=== PATIENT | female | born 1965 | race Caucasian/White ===

== ENCOUNTER 2024-12-30 11:05 | Outpatient (CLI) | payer MEDICAID, SELFPAY ==
[2024-12-30 16:00] LABS: Hematocrit 44.1 % (37.0-47.0); Hemoglobin 14.3 g/dL (12.2-16.2); Immature Granulocytes % 0.8 %; Mean Corpuscular HGB Conc 32.4 g/dL (31.8-35.4); Mean Corpuscular Hemoglobin 29.5 pg (27.0-31.2); Mean Corpuscular Volume 90.9 fl (81-99); Nucleated Red Blood Cells % 0 %; Platelet Count 221 K/mm3 (142-424); Red Blood Count 4.85 M/mm3 (4.20-5.40); Red Cell Distribution Width-SD 49.7 fL; White Blood Count 15.1 K/mm3 (4.8-10.8)
[2024-12-30 16:44] LABS: Alanine Aminotransferase 30 U/L (12-78); Albumin Level 3.4 g/dl (3.5-5.0); Albumin/Globulin Ratio 1.4 (1.1-1.8); Alkaline Phosphatase 86 U/L (38-126); Anion Gap 9.0 mEq/L (5-15); Aspartate Amino Transferase 25 U/L (14-36); Bilirubin,Total 0.4 mg/dl (0.2-1.3); Blood Urea Nitrogen 17 mg/dl (7-17); Calcium 8.7 mg/dl (8.4-10.2); Carbon Dioxide 30 mmol/L (22.0-30.0); Chloride 101 mmol/L (98-107); Cholesterol 164 mg/dl (140-200); Creatinine,Serum 0.80 mg/dl (0.52-1.04); Estimated Glomerular Filt Rate 74 ml/min (>60); GFR (African American) 89 ML/MIN (>60); Globulin 2.4 g/dL (1.3-3.2); Glucose 99 mg/dl (74-100); HDL Cholesterol 79 mg/dl (40-60); Potassium 4.0 mmoL/L (3.5-5.1); Sodium 136 mmol/L (136-145); Total Protein,Serum 5.8 g/dl (6.3-8.2); Triglycerides 127 mg/dl (30-150)
[2024-12-30 16:59] LABS: 25-OH Vitamin D, Total 35.2 ng/mL (30-100)
[2024-12-30 17:15] LABS: Thyroid Stimulating Hormone 2.37 uIU/mL (0.465-4.68)
[2024-12-30 18:11] LABS: Hepatitis C Ab Qual. W/ RFX NEGATIVE (Negative)
--- OUTSIDE RECORDS SUMMARY | 2025-01-02 10:46 | XMS_ITS | Clinical Summary ---
Author Organization [facility] Medical Address [facility] [place] [address] Phone Care Team Providers Care Assessment Technician Name Role Phone Adair SONIAThea Primary Care Physician Conditions or Problems Problem Name Problem Code Onset Date Status Entry Date Provider Comment Standard Description Annotate Counseling for nutrition Z71.3 (ICD-10-CM ) 12/23 Inactive 12/23 Berlin Mcdowell MD Dietary counseling and surveillance Body mass index (BMI) 45.0-49.9; adult Z68.42 (ICD-10-CM ) 12/23 Active 12/23 Berlin Mcdowell MD Body mass index [BMI] 45.0-49.9, adult Body mass index (BMI) 40.0-44.9; adult Z68.41 (ICD-10-CM ) 11/24 Correction 11/24 Berlin Mcdowell MD Body mass index [BMI] 40.0-44.9, adult Rotator cuff impingement syndrome Rt shoulder 708945325 (SNOMED CT) 12/23 Active 12/23 Berlin Mcdowell MD Rotator cuff impingement syndrome Counseling for nutrition Z71.3 (ICD-10-CM ) 11/24 Inactive 11/24 Celeste Munoz APRN Dietary counseling and surveillance Body mass index (BMI) 40.0-44.9; adult Z68.41 (ICD-10-CM ) 11/24 Removed 11/24 Celeste Munoz APRN Body mass index [BMI] 40.0-44.9, adult Body mass index (BMI) 40.0-44.9; adult Z68.41 (ICD-10-CM ) 10/21 Correction 10/21 Celeste Munoz APRN Body mass index [BMI] 40.0-44.9, adult Body mass index (BMI) 40.0-44.9; adult Z68.41 (ICD-10-CM ) 10/21 Removed 10/21 Daria Valadez APRN Body mass index [BMI] 40.0-44.9, adult Counseling for nutrition Z71.3 (ICD-10-CM ) 10/21 Inactive 10/21 Daria Valadez APRN Dietary counseling and surveillance Body mass index (BMI) 39.0-39.9; adult Z68.39 (ICD-10-CM ) 10/08 Correction 10/08 Daria Valadez APRN Body mass index [BMI] 39.0-39.9, adult Acute cystitis 44674739 (SNOMED CT) 10/21 Inactive 10/21 Daria Valadez APRN Acute cystitis Body mass index (BMI) 39.0-39.9; adult Z68.39 (ICD-10-CM ) 10/08 Removed 10/08 Celeste Munoz APRN Body mass index [BMI] 39.0-39.9, adult COPD with exacerbatio n 555319919 (SNOMED CT) 10/08 Inactive 10/08 Celeste Munoz APRN Acute exacerbation of chronic obstructive pulmonary disease Hx of COPD 560419409 (SNOMED CT) 04/11 Active 04/11 Thea Borrero APRN History of chronic obstructive airway disease Seasonal allergic rhinitis 885709933 (SNOMED CT) 04/11 Active 04/11 Thea Borrero APRN Seasonal allergic rhinitis Medications Medication Instructions Start Date Stop Date Generic Name ND Provider DAVID ULTRA STRENGTH 5 % PTCH Apply to rt shoulder twice a day MENTHOL (TOPICAL ANALGESIC) [id number] Berlin Mcdowell MD OMEPRAZOLE 20 MG CPDR TAKE 1 CAPSULE BY MOUTH ONCE A DAY OMEPRAZOLE [id number] Berlin Mcdowell MD IBUPROFEN 800 MG TABS TAKE 1 TABLET THREE TIMES DAILY NEEDED FOR PAIN IBUPROFEN 05393443747 Berlin Mcdowell MD CEFUROXIME AXETIL 250 MG TABS Take one tablet by mouth every 12 hours for 10 days CEFUROXIME AXETIL 65047109960 Celeste Tammy SCOTT PREDNISONE 10 MG TABS 4 BY MOUTH EVERY DAY FOR 3 DAYS; 3 BY MOUTH EVERY DAY FOR 3 DAYS; 2 PO BY MOUTH FOR 3 DAYS; 1 BY MOUTH FOR 3 DAYS PREDNISONE [id number] Celeste Tammy SCOTT MACROBID 100 MG CAPS ONE CAPSULE BY MOUTH TWICE A DAY NITROFURANTOIN MONOHYD MACRO [id number] Daria Valadez ORACLE DBA PREDNISONE 20 MG TABS TAKE 2 TABLETS BY MOUTH ONCE EVERY MORNING WITH FOOD PREDNISONE 24450729248 Aaron Brizuela DO ADVAIR DISKUS 250-50 MCG/DOSE INHALATION AEROSOL POWDER BREATH ACTIVATED TAKE 1 INHALATION 2 TIMES A DAY FLUTICASONE-SALME TEROL 66572179841 Thea Borrero APRN ADVAIR HFA 115-21 MCG/ACT AERO USE 2 INHALATIONS TWICE A DAY FLUTICASONE-SALME TEROL 46646548833 Thea Borrero APRN VENTOLIN HFA 108 (90 Base) MCG/ACT AERS TAKE 2 INHALATIONS 4 TIMES A DAY NEEDED FOR WHEEZING ALBUTEROL SULFATE 96416689307 Thea Borrero APRN JOSELYN ALLERGY 180 MG TABS TAKE 1 TABLET BY MOUTH EACH DAY FOR ALLERGIES FEXOFENADINE HCL 11678802746 Thea Borrero APRN SINGULAIR 10 MG TABS TAKE 1 TABLET BY MOUTH 1 TIME A DAY MONTELUKAST SODIUM 59496407752 Thea Borrero APRN IPRATROPIUM-A LBUTEROL 0.5-2.5 (3) MG/3ML SOLN use with nebulizer machine IPRATROPIUM-ALBUT RALPH 74504036397 Thea Borrero APRN Medications Administered No information available. Allergies, Adverse Reactions, Alerts Allergy Name Reaction Description Start Date Severity Statu s Provider CIPRO Severe Active Thea B willian ORACLE DBA BACTRIM Severe Active Thea B willian ORACLE DBA AZITHROMYCIN Severe Active Brian Borrero ORACLE DBA Results Date Name Value Unit Range Flag Description Lab Report: HEPATITIS B SURF SHARIF ANTIGEN W/REFL CONFIRM, HEPATITIS B SURF ... HBSAG NON-REACTIVE NON-REACTI N Hepat itis B virus surface Ag [Presence] in Tissue by Immune stain Office Visit: Flank pain, tr ouble urinating, hard to void RM 1 GLUCOSE, URN negative Glucose [Mass/volume] in Urine by Test strip BILIRUBIN UR negative Bilirub in.total [Presence] in Urine by Test strip KETONES URN negative Ketones [Mass/volume] in Urine by Test strip SPEC GR URIN 1.025 Specific gravity of Urine by Test strip BLOOD UR DIP 3+ blood in urine (hemoglobin) by dipstick PH URINE 6.0 pH of Urine by Test strip PROTEIN, URN 1+ protein, urine, semiquantitative (dipstick) UROBILINOGEN 0.2 Urobilin ogen [Presence] in Urine by Test strip NITRITE URN positive Nitrite [Presence] in Urine by Test strip WBC DIPSTK U 3+ Leukocyt e esterase [Presence] in Urine by Test strip Plan of Care Type Date Detail Referral [facility] Physical [facility] Referral excluded fr om report: Pending order X-Ray Shoulder R ight Pending Order exclud ed from report: Pending [place] Inhalation Treat [place] 88696 Pending order X-Ray Chest Pending order Injection(s) Ord ered Pending order Urine Dip Auto 8 1003 Pending order T1 Urine Culture Patient education Patient Educat ion Given Patient education Medications Patient education Medications Patient education Medications Patient education Medications Patient education Medications Procedures Code Procedure Name Date Entry Date [facility]-[id number] Medication Reconciliation X-Ray Shoulder Right X-Ray Shoulder Right CPT-3074F Most recent systolic blood pressure <130 mm Hg CPT-3079F Most recent diastolic blood pressure 80-8 9 [facility]18 [facility]-[id number] Medication Reconciliation CPT-78811 Pulse Ox for O2 Saturation; single 01540 CPT-3074F Most recent systolic blood pressure <130 mm Hg CPT-3078F Most recent diastoli c blood pressure <80 mm Hg PUL[facility] Pulmonology Referral General CPT-19446 Inhalation Treatment 40131 2 X-Ray Chest X-Ray Chest Inj Order Injection(s) Ordered [id number] Depo medrol 40mg/ml Injection 11/24 [facility]-[id number] Medication Reconciliation CPT-3074F Most recent systolic blood pressure <130 mm Hg CPT-3074F Most recent systolic blood pressure <130 mm Hg CPT-16818 Urine Dip Auto 67240 [facility] 395 T1 Urine Culture CPT-3074F Most recent systolic blood pressure <130 mm Hg CPT-3078F Most recent diastoli c blood pressure <80 mm Hg SCT-[id number] Medication Reconciliation SCT-[id number] Medication Reconciliation [facility]-[id number] Giving encouragement to exercise [facility]-[id number] [facility] [id number] Current Medications Documented Vital Signs Date Name Value Unit Description BMI (Body Mass Index) 47.43 kg/m2 Bod y Mass Index (Ratio) Body Temperature 98.0 [degF] temperat ure E&M Body Temperature 36.67 Elizabeth temperat ure in centigrade E&M BP Diastolic 82 mm[Hg] blood pressu re, diastolic BP Systolic 122 mm[Hg] blood pressur e, systolic BSA (Body Surface Area) 2.16 b chun surface area Heart Rate 76 /min pulse rate Height 60 [in_us] height E&M Height 152.4 cm height in cent imeters E&M Weight Measured 110 kg weight in kilograms E&M Weight Measured 242 [lb_av] weight E& M Weight Measured 242 [lb_av] weight E& M Respiratory Rate 18 /min respirat ory rate E&M Immunizations No information available. Advance Directives No information available.
--- OUTSIDE RECORDS SUMMARY | 2025-01-02 10:48 | XMS_ITS | Clinical Summary ---
Author Organization [facility] Address [address] [place] [address] Care Team Providers Care Compressor Mechanic Bus Name Role Phone Unavailable Primary Care Provider Unavailabl e Social History Tobacco Use Types Packs/Day Years Used Date Smoking Tobacco: Never Assessed Comments Unknown Sex and Gender Information Value Date Recorded Sex Assigned at Not on file Legal Sex Female 8:42 AM EDT Gender Identity Not on file Sexual Orientation Not on file Plan of Treatment Health Maintenance Due Date Last Done Comments Pap Screening 1987 Mammogram Screening 2006 Colonoscopy 2011 Shingrix (#1) 01/31/2016 Pneumococcal 50+ (3 of 3 - PCV20 or PCV21) 02/24/2024 02/23/2019, 07/22/2017 Influenza Vaccine (#1) 2024 DTap,Tdap,and Td (2 - Td or Tdap) 01/23/2029 01/23/2019 RSV Vaccine (60+ or ) (1 - 1-dose 75+ series) 2041 Pneumococcal 0-49 Discontinued 02/23/2019, 07/22/2017 HPV Aged Out No longer eligi ble based on patient's age to complete this topic Meningococcal conjugate valent 4 (MCV4) Aged Out No longer eligible based on patient's age to complete this topic RSV Immunization (<20 months) Aged Out No longer eligible based on patient's age to complete this topic
--- OUTSIDE RECORDS SUMMARY | 2025-01-02 10:48 | XMS_ITS | Clinical Summary ---
Author Organization [facility] Address [address] [place] [phone] Phone Care Team Providers Care Hearing Screen Coordinator Name Role Phone Saba MatosW Unavailable [phone] No Pcp, Per Patient Primary Care Provider Unavai lable Allergies Active Allergy Reactions Criticality Noted Date Comments Azithromycin Nausea And Vomiting Low 06/12/2013 Ciprofloxacin Nausea And Vomiting Low 12/17/2009 Codeine Nausea Only Low 12/11/2009 Influenza A (H1n1) Vac 2009 Nausea And Vomiting Low 07/21/2016 Guaifenesin Palpitations 09/01/2024 Promethazine Other (See Comments) Medium 07/21/2016 Confusion Sulfamethoxazole-Trimethoprim Nausea And Vomiting Low 12/17/2009 Hydrocodone-Acetaminophen Itching Low 12/11/2009 Medications * This document contains information received from the source organization and may not represent a complete record from that organization. albuterol (PROVENTIL HFA;VENTOLIN HFA) 90 mcg/actuation Inhl HFA Aerosol Inhaler Inhale 2 Puffs into the lungs every 4 hours as needed for Wheezing. 1 Each 2 4 Active omeprazole (PRILOSEC) 40 mg Oral Capsule, Delayed Release(E.C.) Take 40 mg by mouth daily. 5 Active budesonide-glyc opyr-formoterol (BREZTRI AEROSPHERE) 160-9-4.8 mcg/actuation Inhl HFA Aerosol InhalerIndicati ons:Asthma with COPD (HCC) Inhale 2 Puffs into the lungs 2 times daily. 10.7 g 11 5 Active montelukast (SINGULAIR) 10 mg Oral TabletIndicatio ns:Asthma with COPD (HCC) Take 1 Tablet by mouth nightly. 30 Tablet 11 5 Active fexofenadine (JOSELYN) 180 mg Oral Tablet Take 1 Tablet by mouth daily. 30 Tablet 6 5 Active fluticasone propionate (FLONASE) 50 mcg/actuation Nasl [place], Suspension 2 Sprays in each nostril daily. 1 Each 11 5 Active tiotropium bromide (SPIRIVA RESPIMAT) 2.5 mcg/actuation Inhl Mist Inhale 2 Puffs into the lungs daily. 12 g 1 5 Active albuterol (PROVENTIL HFA;VENTOLIN HFA) 90 mcg/actuation Inhl HFA Aerosol InhalerIndicati ons:Asthma with COPD (HCC) Inhale 2 Puffs into the lungs every 4 hours as needed for Wheezing. 2 Each 4 5 Active albuterol-iprat ropium (DUO-NEB) 3 mg-0.5 mg(2.5 mg base)/3 mL Inhl Solution for NebulizationInd ications:Asthma with COPD (HCC) Take 3 mL by nebulization 0800, 1200, 1600, 2000. 360 mL 3 5 Active Active Problems Problem Noted Date Diagnosed Date COPD exacerbation 08/31/2024 Assessment & Plan (09/01/2024 10:13 AM EDT): Resolving Not on Home O2, currently on RA Provide supplemental O2 to keep SpO2 88-92% or PaO2 > 60-65% Nebulizer treatments: DuoNebs q6h, Albuterol PRN, Pulmicort 500 mcg BID Corticosteroids: Prednisone 40 mg daily x 5 days Pulmonary toilet: incentive spirometer and vibratory PEEP/flutter Out of bed and up to chair as tolerated Physical therapy Assessment & Plan (08/31/2024 3:34 PM EDT): Not on Home O2, currently on RA Provide supplemental O2 to keep SpO2 88-92% or PaO2 > 60-65% Nebulizer treatments: DuoNebs q6h, Albuterol PRN, Pulmicort 500 mcg BID Corticosteroids: Prednisone 40 mg daily x 5 days Pulmonary toilet: incentive spirometer and vibratory PEEP/flutter Out of bed and up to chair as tolerated Physical therapy Chest pain 08/21/2021 Incisional hernia, without obstruction or gangre ne 10/19/2019 Overview (10/19/2019): Added automatically from request for surgery [id number] Other ascites 02/23/2019 Ovarian tumor of borderline malignancy, left Overview (02/24/2019): Added automatically from request for surgery [id number] Rotator cuff impingement syndrome 12/23/2017 Moderate persistent asthma without complication 12/10/2017 Acute cystitis 10/21/2017 Gastroesophageal reflux disease without esophagi tis 10/16/2016 Assessment & Plan (09/01/2024 7:24 AM EDT): Continue with home PPI Assessment & Plan (08/31/2024 3:34 PM EDT): Continue with home PPI Seasonal allergic rhinitis 10/16/2016 Acute hypoxic respiratory failure 10/13/2016 Assessment & Plan (09/01/2024 10:13 AM EDT): Resolved Secondary to COPD Provide supplemental O2 to keep SpO2 88-92% or PaO2 > 60-65% Assessment & Plan (08/31/2024 3:34 PM EDT): Secondary to COPD Resolved during my encounter, patient on RA Provide supplemental O2 to keep SpO2 88-92% or PaO2 > 60-65% History of COPD 04/11/2016 BMI 32.0-32.9,adult 08/24/2015 Assessment & Plan (09/01/2024 7:24 AM EDT): Weight lost education provided Assessment & Plan (08/31/2024 3:34 PM EDT): Weight lost education provided Lung nodule 07/19/2015 Overview (02/23/2019): 10/2016: stable noncalcified pulmonary nodule in the right lower lobe. Follow up in 1 year not done. Assessment & Plan (09/01/2024 7:24 AM EDT): Follows with yearly CT but last CT is due Education provided Outpatient follow up Assessment & Plan (08/31/2024 3:34 PM EDT): Follows with yearly CT but last CT is due Education provided Outpatient follow up Tobacco abuse 09/15/2013 Assessment & Plan (09/01/2024 10:13 AM EDT): Has been smo Lovenox Extensively educated on Smoking cessation/ Says she knows what will happen if she keeps smoking but it is difficult for her to stop since Life always happens when I quit, anxiety kicks in and I start smoking again. Options were provided. I won't take the pills . Over 10 minutes spent discussing with the patient about smoking cessation Assessment & Plan (08/31/2024 3:34 PM EDT): Has been smoking for 30 years at list Extensively educated on Smoking cessation/ Says she knows what will happen if she keeps smoking but it is difficult for her to stop since Life always happens when I quit, anxiety kicks in and I start smoking again. Options were provided. I won't take the pills . Over 10 minutes spent discussing with the patient about smoking cessation Assessment & Plan (06/30/2024 10:50 AM EDT): She smokes 1 PPD and has a 39 pack-year history I have discussed with the patient the need for smoking cessation for at least 5 minutes. We discussed the risks and benefits especially as it relates to heart disease and potential cancers. she will continue to try to quit. I have encouraged her to contact us if she would like additional resources or nicotine replacement therapy. Discussed outpatient programs including [facility] program as well. CHF (congestive heart failure) COPD (chronic obstructive pulmonary disease) Resolved Problems Problem Noted Date Diagnosed Date Resolved Date Tobacco abuse 02/23/2019 02/23/2019 Non morbid obesity due to excess calories 10/16/2016 02/23/2019 COPD with acute exacerbation 07/19/2015 08/24/2015 Acute exacerbation of chroni c obstructive pulmonary disease (COPD) 09/29/2014 02/23/2019 Gram-negative bacteremia 09/16/2013 Sepsis 09/16/2013 08/24/2015 Pyelonephritis 09/15/2013 08/24/2015 UTI (lower urinary tract infection) 09/15/2013 08/24/2015 Ureteral stone with hydronephrosis 09/15/2013 02/23/2019 Encounters Date Type Department Care Team Description 11/15/[address] [facility] [address] [place] [address] [address] [place] [phone] Fatemeh Stevens NP Medication Refill 10/14/2024 Orders Only SEP Pulmonology [facility] [address] [place] [address] [address] [place] [address] Humza Vale MA Chronic obstructive pulmonary disease, unspecified COPD type (HCC) 10/14/[address] [facility] [address] [facility] [address] [place] [address] Agustin Moore MD Medication Refill from Last 3 Months Immunizations Immunization Administration Dates Next Due Pneumococcal Conjugate Vaccine 13 Valent 018 Pneumococcal Polysaccharide 23 Valent 02/23/2019 Tdap 01/23/2019 Surgical History Surgery Date Site/Laterality Comments SECTION GALLBLADDER SURGERY FRACTURE SURGERY 06/04/2013 - 07/04/2013 left wrist LAPAROSCOPY TUBAL LIGATION CYSTOSCOPY 09/16/2013 Ureter/Right CYSTOSCOPY, RIGHT RETROGRADE AND STENT PLACEMENT; Surgeon: Chan Candelaria MD; Location: [facility] MAIN OR; Service: Urology Medical devices from this surgery are in the Medical Devices section. LUNG BIOPSY HYSTERECTOMY, TOTAL ABDOMINAL 02/25/2019 Bilateral total abdominal hysterectomy, bilateral salpingo-oophorectomy,no ntectomy and appendectomy ; Surgeon: Carlos Carcamo MD; Location: [facility]IN OR; Service: Gynecology APPENDECTOMY 02/25/2019 Surgeon: Carlos Carcamo MD; Location: [facility]IN OR; Service: Gynecology VENTRAL HERNIA REPAIR 12/13/2019 N/A Robotic repair incisional hernia with mesh ; Surgeon: Álvaro Mg MD; Location: [facility] MAIN OR; Service: Robotics Medical devices from this surgery are in the Medical Devices section. Medical History Medical History Date Comments Blood transfusion UTI (lower urinary tract infection) Kidney stone on right side Asthma Encounter for blood transfusion COPD (chronic obstructive pulmonary disease) (HC C) CHF (congestive heart failure) (HCC) Family History Medical History Relation Name Comments Cancer Brother Cancer Father Diabetes Mother Heart Disease Mother High Blood Pressure Mother Relation Name Status Comments Brother Father Mother Social History Tobacco Use Types Packs/Day Years Used Date Smoking Tobacco: Every Day Cigarettes 1 39.4 Started: 08/26/1985 Smokeless Tobacco: Never Tobacco Cessation:Ready to Q uit: Not Asked; Counseling Given: Not Answered Alcohol Use Standard Drinks/Week Comments No 0 (1 standard drink = 0.6 oz pur e alcohol) [facility] Utilities Answer Date Recorded In the past 12 months has e [employer], gas, oil, or water Whim threatened to shut off services in your home? No 08/31/2024 Overall Financial Resource Strain (CARDIA) Answe r Date Recorded How hard is it for you to pa y for the very basics like food, housing, medical care, and heating? Not very hard 08/31/2024 PHQ-2 Answer Date Recorded PHQ-2 Total Score 0 08/31/2024 [facility] [place] [facility] - Occupational Stress Questionnaire Answer Date Recorded Do you feel stress - tense, restless, nervous, or anxious, or unable to sleep at night because your mind is troubled all the time - these days? To some extent 08/31/2024 Exercise Vital Sign Answer Date Recorde d On average, how many days pe r week do you engage in moderate to strenuous exercise (like a brisk walk)? 0 days 08/31/2024 On average, how many minutes do you engage in exercise at this level? 0 min 08/31/2024 Hunger Vital Sign Answer Date Recorded Within the past 12 months, y ou worried that your food would run out before you got the money to buy more. Never true 09/01/19 25 Within the past 12 months, t he food you bought just didn't last and you didn't have money to get more. Never true 08/31/2024 PRAPARE - Transportation Answer Date Re corded In the past 12 months, has l ack of transportation kept you from medical appointments or from getting medications? No 08/04 In the past 12 months, has l ack of transportation kept you from meetings, work, or from getting things needed for daily living? No 08/22/2021 [facility] IP Transportation Answer D ate Recorded In the past 12 months, has l ack of reliable transportation kept you from medical appointments, meetings, work or from getting things needed for daily living? No 08/31/2024 Comments No Sex and Gender Information Value Date Recorded Sex Assigned at Not on file Legal Sex Female 3:30 PM EDT Gender Identity Not on file Sexual Orientation Not on file Last Filed Vital Signs Vital Sign Reading Time Taken Comments Blood Pressure 131/78 09/01/2024 7:33 AM EDT Pulse 80 09/01/2024 7:33 AM EDT Temperature 36.4 C (97.5 F) 09/01/2024 7:33 AM EDT Respiratory Rate 18 09/01/2024 7:33 AM EDT Oxygen Saturation 95% 09/01/2024 7:33 AM EDT Inhaled Oxygen Concentration - - Weight 100.3 kg (221 lb 1.9 oz) 08/31/2024 2:57 PM EDT Height 162.6 cm (5' 4 ) 08/31/2024 2:57 PM EDT Body Mass Index 37.96 08/31/2024 2:57 PM EDT Plan of Treatment Health Maintenance Due Date Last Done Comments Annual Wellness Exam 1969 Hepatitis B Vaccine (1 of 3 - 19+ 3-dose series) 1985 Breast Cancer Screening 2006 Cologuard 2011 Colon Cancer Screening 2011 Colonoscopy 2011 FIT 2011 Sigmoidoscopy 2011 Virtual Colonography 2011 Zoster (1 of 2) 01/31/2016 Low Dose Lung Cancer Screening 11/20/2023 11/19/2022, 08/21/2021, 09/25/2020, Additional history exists Pneumococcal Vaccine 50+ (3 of 3 - PCV20 or PCV21) 02/24/2024 02/23/2019, 07/22/2017 COVID-19 Vaccine ( season) 2024 Influenza Vaccine (#1) 2024 06/14/2015 (Declin ed) DTaP/TDaP/Td (2 - Td or Tdap) 01/23/2029 01/23/2019 Meningococcal B Vaccine Aged Out No l onger eligible based on patient's age to complete this topic Medical Devices Implanted Type Area Scientific Editor Device Identifier Shelf Expiration Date Model / Serial / Lot Stent Ureteral Contour 6 X 26 #[id number] - [id number] Implanted:Qty: 1 on 09/16/2013 by Chan Candelaria MD at [facility] Stent Right: Ureter [employer] :UROLOGY [id number] 07/05/2016 [id number] / / [id number] Mesh Surgical Ventralight St Echo 2 Ellipse L15 Cm X W10 Cm - [id number] Implanted:Qty: 1 on 12/13/2019 by Kodi Mg MD at [facility] N/A: Abdomen CR BARD:MEDICAL [id number] 02/01/2020 [id number] / / [id number] Procedures Procedure Name Priority Date/Time Associated Diagnosis Comments CT CHEST WO CONTRAST Routine 11/19/2022 8:02 AM EDT Shortness of breath from Last 3 Months or Most Recently Relevant to Health Maintenance Results * CT CHEST WO CONTRAST (11/19/2022 8:02 AM EDT) Anatomical Region Laterality Modality Chest Computed Tomogra phy 11/19/2022 8:02 AM EDT Impressions 11/19/2022 8:40 AM EDT No acute finding in the chest. - Note: Radiology results need to be interpreted within a comprehensive clinical context. If you have questions about the radiology report, please contact the office of the ordering clinician. Narrative 11/19/2022 8:[address] CHEST WITHOUT CONTRAST, 11/19/2022 8:02 AM CLINICAL HISTORY: R06.02-Shortness of [id number]. COMPARISON: 08/21/2021, 09/25/2020, 02/26/2019 PROCEDURE COMMENTS: Multi-detector CT of the chest with multiplanar reconstructions per protocol. No contrast given. Dose 1 : CT DLP Total : 538.2 mGycm DLP Spiral Max : 538.2 mGycm Maximum CTDI Vol : 13.9 mGy FINDINGS: Thyroid unremarkable. No axillary or mediastinal adenopathy. Heart chambers, great vessels normal caliber. Trace pericardial fluid/thickening anteriorly. No focal esophageal wall thickening. Airways are patent. No dense consolidation or effusion. Pulmonary nodules: Calcified right lower lobe granuloma. Coronary artery calcification: Mild. Upper abdomen unremarkable. No destructive bony lesion. Procedure Note Adria Yeh MD - 11/19/2022 CT CHEST WITHOUT CONTRAST, 11/19/2022 8:02 AM CLINICAL HISTORY: R06.02-Shortness of [id number]-CM. COMPARISON: 08/21/2021, 09/25/2020, 02/26/2019 PROCEDURE COMMENTS: Multi-detector CT of the chest with multiplanar reconstructions per protocol. No contrast given. Dose 1 : CT DLP Total : 538.2 mGycm DLP Spiral Max : 538.2 mGycm Maximum CTDI Vol : 13.9 mGy FINDINGS: Thyroid unremarkable. No axillary or mediastinal adenopathy.Heart chambers, great vessels normal caliber. Trace pericardialfluid/thickening anteriorly. No focal esophageal wall thickening. Airways are patent. No dense consolidation or effusion. Pulmonary nodules: Calcified right lower lobe granuloma. Coronary artery calcification: Mild. Upper abdomen unremarkable. No destructive bony lesion. IMPRESSION: No acute finding in the chest. - Note: Radiology results need to be interpreted within a comprehensiveclinical context. If you have questions about the radiology report, please contactthe office of the ordering clinician. Agustin Moore MD [facility] CT ORDERABLES Final Result from Last 3 Months or Most Recently Relevant to Health Maintenance Insurance [facility] [id number] [facility] [employer] [place] [address] [employer] [place] [address] [employer] [place] [address] [place] [address] MDR Advance Directives For more information, please contact: [phone] * Full Code (Latest Code Status on File) Date Activated Date Inactivated Comments 08/31/2024 12:37 PM 09/01/2024 2:57 PM * Full Code Date Activated Date Inactivated Comments 08/21/2021 6:33 PM 08/22/2021 8:45 PM * Full Code Date Activated Date Inactivated Comments 08/21/2021 3:23 PM 08/21/2021 6:33 PM * Full Code Date Activated Date Inactivated Comments 02/23/2019 5:24 PM 02/28/2019 5:48 PM * Full Code Date Activated Date Inactivated Comments 02/22/2019 9:43 PM 02/23/2019 4:51 PM Care Teams Hearing Screen Coordinator Relationship Specialty Start Date End Date No Pcp, Per Patient PCP - General 08/31/24 Saba Matos LCSW Tax Agent 01/06/23
--- OUTSIDE RECORDS SUMMARY | 2025-01-02 10:48 | XMS_ITS | Encounter Summary ---
Author Organization [place] [address] Care Team Providers Care Community Relations Specialist Name Role Phone Saba MatosW Unavailable [phone] No Pcp, Per Patient Primary Care Provider Unavai lable Reason for Visit * Reason Onset Date Comments Medication Refill 11/15/2024 Encounter Details Date Type Department Care Team (Late st Contact Info) Description 11/15/2024 Refill SEP Pulmonology [facility] [address] [address] Fatemeh Stevens, ELECTRICAL ENGINEERING DIRECTOR [address] [place] [address] Medication Refill Social History Tobacco Use Types Packs/Day Years Used Date Smoking Tobacco: Every Day Cigarettes 1 39.4 Started: 08/26/1985 Smokeless Tobacco: Never Alcohol Use Standard Drinks/Week Comments No 0 (1 standard drink = 0.6 oz pur e alcohol) [facility] Utilities Answer Date Recorded In the past 12 months has e electric, gas, oil, or water company threatened to shut off services in your home? No 08/31/2024 Overall Financial Resource Strain (CARDIA) Answe r Date Recorded How hard is it for you to pa y for the very basics like food, housing, medical care, and heating? Not very hard 08/31/2024 PHQ-2 Answer Date Recorded PHQ-2 Total Score 0 08/31/2024 [facility] [place] [facility] Occupat ional Health - Occupational Stress [...] things needed for daily living? No 08/22/2021 [facility] IP Transportation Answer D ate Recorded In [...] on file Sexual Orientation Not on file documented as of this encounter Functional Status * Is the person deaf or does he/she have serious difficulty hearing? Answer Date of Assessment Author No 09/01/2024 9:51 AM Raquel Baldwin RN * Is the person blind or does he/she have serious difficulty seeing even when wearing glasses? Answer Date of Assessment Author No 09/01/2024 9:51 AM Raquel Baldwin RN * Does this person have serious difficulty walking or climbing stairs? Answer Date of Assessment Author No 09/01/2024 9:51 AM Raquel Baldwin RN * Does this person have difficulty dressing or bathing? Answer Date of Assessment Author No 09/01/2024 9:51 AM Raquel Baldwin RN * Because of a physical, mental or emotional condition, does this person have difficulty doing errands alone such as visiting a doctor's office or shopping? Answer Date of Assessment Author No 09/01/2024 9:51 AM Raquel Baldwin RN documented as of this encounter Mental Status * Because of a physical, mental or emotional condition, does this person have serious difficulty concentrating, remembering or making decisions? Answer Entry Date Author No 09/01/2024 9:51 AM Raquel Baldwin RN documented in this encounter Ordered Prescriptions Prescription Sig Dispense Quantity Refills Last Filled Start Date End Date albuterol-ipratro pium (DUO-NEB) 3 mg-0.5 mg(2.5 mg base)/3 mL Inhl Solution for NebulizationIndic ations:Asthma with COPD (HCC) Take 3 mL by nebulization 0800, 1200, 1600, 2000. 360 mL 3 11/15/2024 albuterol (PROVENTIL HFA;VENTOLIN HFA) 90 mcg/actuation Inhl HFA Aerosol InhalerIndication s:Asthma with COPD (HCC) Inhale 2 Puffs into the lungs every 4 hours as needed for Wheezing. 2 Each 4 11/15/2024 documented in this encounter Plan of Treatment Not on file documented as of this encounter Visit Diagnoses Diagnosis Asthma with COPD (HCC) Chronic obstructive asthma, unspecified documented in this encounter Discontinued Medications Medication Sig Discontinue Reason Start Date End Da te albuterol (PROVENTIL HFA;VENTOLIN HFA) 90 mcg/actuation Inhl HFA Aerosol InhalerIndications:As thma with COPD (HCC) Inhale 2 Puffs into the lungs every 4 hours as needed for Wheezing. Reorder 06/30/2024 11/15/2024 albuterol-ipratropium (DUO-NEB) 0.5 mg-3 mg(2.5 mg base)/3 mL Inhl Solution for NebulizationIndicatio ns:Asthma with COPD (HCC) Take 3 mL by nebulization 0800, 1200, 1600, 1999. Reorder 06/30/2024 11/15/2024 documented as of this encounter Care Teams Community Relations Specialist Relationship Specialty Start Date End Date No Pcp, Per Patient PCP - General 08/31/24 Saba Matos, [facility] Well Service Floor Worker 01/06/23 documented as of this encounter
== END 2024-12-30 23:59 ==
LOC: LAB.DROPOF 01-02 10:40
PROVIDERS: PCP Nurse Practitioner Family; Visit Provider Nurse Practitioner Family
DX: Z11.59 Encounter for screening for other viral diseases (principal); Z86.39 Personal history of other endocrine, nutritional and metabolic disease; E55.9 Vitamin D deficiency, unspecified; F41.9 Anxiety disorder, unspecified; R53.83 Other fatigue
CPT/HCPCS: 80053; 80061; 82306; 84443; 85025; 86803; 87389